=== PATIENT | male | born 1960 | race Caucasian/White ===

== ENCOUNTER 2024-05-16 06:07 | Day surgery (SDC) | payer SELFPAY ==
[~2024-05-16] VITALS: Ht 193 cm; Wt 118.8 kg
[2024-05-16] VITALS (11 sets, daily range): BP systolic 98–142; BP diastolic 67–92
[~2024-05-16 06:07] MED LIST: ASPI81CH PO; ATOR80 PO; BUPROPION XL150 M1 PO; DULO60 PO
[2024-05-16] MEDS ORDERED: Acetaminophen 500 MG Tab PO SCH ×2 (06:15→16:00)
[2024-05-16] MEDS ORDERED: Tranexamic Acid 100 ML IV SCH (06:15)
[2024-05-16] MEDS ORDERED: Ropivacaine 0.5% HCl/Pf 123.125 MG,EPINEPHrine HCL 0.25 MG,Ketorolac Tromethamine 15 MG... INFIL SCH (06:15)
[2024-05-16] MEDS ORDERED: Chlorhexidine Mouth Care 15 ML UDC MT SCH (06:15)
[2024-05-16] MEDS ORDERED: Lactated Ringer's 1,000 ML IV SCH ×2 (06:15→07:45)
[2024-05-16] MEDS ORDERED: OxyCODONE HCL 10 MG TABCR PO SCH (06:15)
[2024-05-16] MEDS ORDERED: CeFAZolin Sodium 2,000 MG in NS 100 ML IV SCH ×2 (06:15→15:30)
[2024-05-16] MEDS ORDERED: propofoL 80 ML IV ONE (06:59)
[2024-05-16] MEDS ORDERED: FentaNYL Citrate 50 MCG/ML 2 ML Injection ONE (06:59)
[2024-05-16] MEDS ORDERED: Lidocaine HCl 2% 20 ML MDV ONE (07:00)
[2024-05-16] MEDS ORDERED: Dexmedetomidine HCL 200 MCG / 2 ML ONE (07:09)
[2024-05-16] MEDS ORDERED: Midazolam HCl 1MG / ML 2ML Vial IV SCH (07:20)
--- NOTE | 2024-05-16 07:26 | NUR ---
PATIENT GAVE GOLD TONE RING TO FOR [employer]. PARTIAL DENTURES LEFT IN WHEN PATIENT TAKENT TO OR.
[2024-05-16] MEDS ORDERED: Ondansetron HCl 2 MG / ML 2ML Vial IV PRN (07:35)
[2024-05-16] MEDS ORDERED: OxyCODONE HCL 5 MG TAB PO PRN ×2 (07:35→07:40)
[2024-05-16] MEDS ORDERED: Promethazine HCl 25 MG Tab PO PRN (07:40)
[2024-05-16] MEDS ORDERED: DiphenhydrAMINE HCL 25 MG Cap PO PRN (07:40)
[2024-05-16] MEDS ORDERED: Prochlorperazine Edisylate 10 mg Vial IV PRN (07:40)
[2024-05-16] MEDS ORDERED: Bisacodyl 10 MG Supp PR PRN (07:40)
[2024-05-16] MEDS ORDERED: FLU VACC TS2024-25(6MOS UP)/PF 45 MCG/0.5 ML SYRINGE IM SCH (07:45)
[2024-05-16] MEDS ORDERED: HYDROmorphone HCl/Pf 1MG SYR IV PRN (07:45)
[2024-05-16] MEDS ORDERED: Metoclopramide HCl 5MG / ML 2ML Vial IV PRN (07:45)
[2024-05-16] MEDS ORDERED: Magnesium Hydroxide Conc 10 ML UDC PO PRN (07:50)
[2024-05-16] MEDS ORDERED: propofoL 20 ML IV ONE ×2 (08:44→09:06)
[2024-05-16] MEDS ORDERED: buPROPion HCL 150 MG TAB.SR.12H PO SCH (09:00)
[2024-05-16] MEDS ORDERED: Ketorolac Tromethamine 15mg Vial IV SCH (12:00)
[2024-05-16] MEDS ORDERED: OXYC5 PO (17:20)
[2024-05-16] MEDS ORDERED: ACET500 PO (17:20)
--- NOTE | 2024-05-16 18:30 | NUR ---
DISCHARGE PT HAS WORKED w/ THERAPY. PAIN WELL CONTROLLED. EATING, DRINKING, & VOIDING WELL. POLAR PACK SENT w/ PT. PICKED UP Rx FROM [facility]. ESCORTED OUT VIA W/C.
[2024-05-16] MEDS ORDERED: Docusate Sodium 100 MG Cap PO SCH (21:00)
[2024-05-17] MEDS ORDERED: DULoxetine HCL 60 MG Capsule DR PO SCH (09:00)
[2024-05-17] MEDS ORDERED: Aspirin 81 MG Chew PO SCH (09:00)
== END 2024-05-16 18:15 | disposition home or self-care (01) ==
LOC: ORSCMMR 06:07 → ORD 07:30 → SURS 09:53 → ORSCMMR 18:15 → ORD 06-06 13:00
PROVIDERS: Orthopaedic Surgery
PROC: 0SR90JA Replacement of Right Hip Joint with Synthetic Substitute, Uncemented, Open Approach (ICD-10-PCS; principal; 2024-05-16 07:30)
DX: M16.11 Unilateral primary osteoarthritis, right hip (principal); I25.10 Atherosclerotic heart disease of native coronary artery without angina pectoris; Z87.891 Personal history of nicotine dependence; E66.9 Obesity, unspecified; Z68.31 Body mass index [BMI] 31.0-31.9, adult; E78.5 Hyperlipidemia, unspecified; Z79.899 Other long term (current) drug therapy
CPT/HCPCS: 72170; 97110; 97116; 97161; 97530; A9270; C1713; C1776; J0171; J0690; J0735; J1885; J2704; J2795; J3010; J7120